=== PATIENT | male | born 1950 | race Caucasian/White ===

== ENCOUNTER 2020-12-19 13:35 | Emergency (ER) | payer MEDICARE, OTHER ==
[~2020-12-19] VITALS: Ht 172.7 cm; Wt 68.0 kg
[2020-12-19] MEDS ORDERED: METFORMIN HCL500 M3 PO (13:51)
[2020-12-19] MEDS ORDERED: ALLOPURINOL 10100 M3 PO (13:51)
[2020-12-19] MEDS ORDERED: LISINOPRIL-HCT1 EAC2 PO (13:51)
[2020-12-19] MEDS ORDERED: KEFLEX500 M1 PO (15:00)
[2020-12-19 15:07] VITALS: BP 133/68
== END 2020-12-19 15:08 | disposition home or self-care (01) ==
LOC: M.ERS 13:35
DX: S61.210A Laceration without foreign body of right index finger without damage to nail, initial encounter (principal); I10 Essential (primary) hypertension; Z79.899 Other long term (current) drug therapy; W27.0XXA Contact with workbench tool, initial encounter; Y93.89 Activity, other specified; Y92.89 Other specified places as the place of occurrence of the external cause; Y99.8 Other external cause status

== ENCOUNTER → 2021-01-15 | Outpatient (CLI) | payer MEDICARE, OTHER ==
[~2021-01-15] MED LIST: ALLOPURINOL 10100 M3 PO; KEFLEX500 M1 PO; LISINOPRIL-HCT1 EAC2 PO; METFORMIN HCL500 M3 PO
== END ==
LOC: M.LAB 05:28
PROVIDERS: ATTEND Anesthesiology
DX: E87.6 Hypokalemia (principal)